=== PATIENT | male | born 1955 | race Caucasian/White ===

== ENCOUNTER 2019-12-12 05:40 | Day surgery (SDC) | payer OTHER ==
[2019-12-08 08:47] LABS: COVID AG,FIA SOURCE NASOPHARYNGEAL
[~2019-12-12] VITALS: Ht 177.8 cm; Wt 99.1 kg
[~2019-12-12 05:40] MED LIST: ALLO-45 PO; ASPI-728 PO; ATOR40TA28 PO; LISI-661 PO; METF-960 PO; MOXIFLOXACIN HCL 0.5% 3 ML OPHTHALMIC SOLUTION ONE; PHENYLEPHRINE HCL 2.5% 2 ML OPHTHALMIC SOLUTION ONE; RINGERS SOLUTION,LACTATED 500 ML IV ONE; TETRACAINE HCL/PF 0.5% 4 ML OPHTHALMIC SOLUTION ONE
[2019-12-12] MEDS ORDERED: MitoMYcin 0.2 MG/VIAL KIT FOR OPHTHALMIC USE OS ONE (06:30)
[2019-12-12] MEDS ORDERED: MOXIFLOXACIN HCL 0.5% 3 ML OPHTHALMIC SOLUTION OS ONE (06:30)
[2019-12-12] MEDS ORDERED: TETRACAINE HCL/PF 0.5% 4 ML OPHTHALMIC SOLUTION OS ONE (06:30)
[2019-12-12] MEDS ORDERED: PHENYLEPHRINE HCL 2.5% 2 ML OPHTHALMIC SOLUTION OS ONE (06:30)
[2019-12-12] MEDS ORDERED: ACETAMINOPHEN 325 MG TABLET PO PRN (07:30)
[2019-12-12] MEDS ORDERED: LIDOCAINE 1% 20 ML VIAL *UNAVILABLE ONE (17:58)
[2019-12-12] MEDS ORDERED: HYALURONATE SODIUM 12 MG/ML 0.8 ML SYRINGE IO ONE (17:58)
[2019-12-12] MEDS ORDERED: NEOMYCIN/POLYMYXIN B/DEXAMETH 3.5 GM OPHTHALMIC OINTMENT ONE (17:58)
[2019-12-12] MEDS ORDERED: EPINEPHrine 1:10,000 [1 MG/10 ML] SYRINGE ONE (17:58)
== END 2019-12-12 09:20 | disposition home or self-care (01) ==
LOC: SURGERY 05:40
PROVIDERS: ATTEND Ophthalmology
DX: H11.002 Unspecified pterygium of left eye (principal); E11.9 Type 2 diabetes mellitus without complications; I10 Essential (primary) hypertension; Z72.89 Other problems related to lifestyle; Z98.890 Other specified postprocedural states; Z79.82 Long term (current) use of aspirin; Z20.828 Contact with and (suspected) exposure to other viral communicable diseases
CPT/HCPCS: 65426; 87426; C9803; J0171; J3490 ×2; J7120